=== PATIENT | male | born 1940 | race Caucasian/White ===

== ENCOUNTER 2017-08-24 13:18 | Inpatient (IN) | payer OTHER ==
[~2017-08-24] VITALS: Ht 175.3 cm; Wt 70.6 kg
[~2017-08-24 13:18] MED LIST: ATORVASTATIN CA40 MG PO; ATORVASTATIN CA80 MG PO; CO Q-1050 MG PO; COLACE100 MG PO; DUONEB 2.5-0.5 M3 ML IH; MULTIPLE VITAM1 EACH PO; NASACORT AQ16.5 GM BOTH NARES; OMEPRAZOLE20 MG PO; OMEPRAZOLE40 M1 PO; PULMICORT FLE180 MCG IH; ULTRAM50 MG PO; [UNRECOGNIZED DRUG - OTHER] PO
[2017-08-24 16:15] LABS: EOSINOPHIL (%) 0.7 % (0-5); EOSINOPHIL COUNT 0.1 K/uL (0-0.3); IMMATURE GRANULOCYTE (%) 0.7 % (0.0-0.7); IMMATURE GRANULOCYTE COUNT 0.1 K/uL; INSTRUMENT ABS NEUTROPHIL CT 10.5 K/uL; LYMPHOCYTE COUNT 1.4 K/uL (1.0-2.8); MCH 30.8 PG (29.0-34.0); MCHC 32.6 G/DL (30.0-36.0); MCV 94.3 FL (86-99); MEAN PLAT.VOLUME 10.8 uM^3 (9.0-12.4); MONOCYTE (%) 6.1 % (3-12); MONOCYTE COUNT 0.8 K/uL (0-0.8); NEUTROPHIL (%) 81.7 % (45-76); NEUTROPHIL COUNT 10.5 K/uL (1.8-6.4); PLATELET COUNT 105 K/uL (156-360); RBC DIS.WIDTH-CV 12.9 % (11.8-14.6); RBC DIS.WIDTH-SD 44.9 % (39-53); RED BLOOD COUNT 4.03 M/uL (4.00-5.50); WHITE BLOOD COUNT 12.8 K/uL (4.1-10.2)
[2017-08-24 16:29] LABS: CHLORIDE 105 mEq/L (99-109); POTASSIUM 3.9 mEq/L (3.7-5.4); SODIUM 139 mEq/L (136-147)
[2017-08-24 16:31] LABS: GLUCOSE 145 mg/dL (70-99)
[2017-08-24 16:32] LABS: ANION GAP 13 MEQ/L (2-14)
[2017-08-24 16:33] LABS: TOTAL BILIRUBIN 0.6 mg/dL (0.0-1.0)
[2017-08-24 16:34] LABS: ALKALINE PHOSPHATASE 78 IU/L (3-129)
[2017-08-24 16:35] LABS: GFR ESTIMATE (CALCULATED) > 59 mL/min/
[2017-08-24 16:36] LABS: UREA NITROGEN (BUN) 21 mg/dL (9-23)
[2017-08-24 16:43] LABS: ADD MIUA? YES; BILIRUBIN NEGATIVE; BLOOD MODERATE; COLOR YELLOW ((YELLOW)); GLUCOSE (STRIP) NEGATIVE; KETONES NEGATIVE; LEUKOCYTES MODERATE; NITRITE NEGATIVE; PROTEIN (STRIP) 30; SPECIFIC GRAVITY 1.014 (1.000-1.030); UROBILINOGEN 0.2 MG/DL (0.2-1.0)
[2017-08-24 17:05] LABS: BACTERIA 4+ /HPF; EPITHELIAL CELLS RARE /HPF; MUCUS NONE SEEN /LPF; UCUL ADDED? YES
[2017-08-24] MEDS ORDERED: OMEPRAZOLE20 MG PO (17:30)
[2017-08-24] MEDS ORDERED: TUMS500 MG PO (17:34)
[2017-08-24 22:05] VITALS: BP 137/66
[2017-08-24 23:19] VITALS: BP 106/59
[2017-08-25 00:57] LABS: HEMATOCRIT 30.4 % (38.0-50.0); MCH 31.1 PG (29.0-34.0); MCHC 33.6 G/DL (30.0-36.0); MCV 92.7 FL (86-99); MEAN PLAT.VOLUME 11.1 uM^3 (9.0-12.4); PLATELET COUNT 88 K/uL (156-360); RBC DIS.WIDTH-CV 13.2 % (11.8-14.6); RBC DIS.WIDTH-SD 44.7 % (39-53); RED BLOOD COUNT 3.28 M/uL (4.00-5.50); WHITE BLOOD COUNT 6.9 K/uL (4.1-10.2)
[2017-08-25 03:59] VITALS: BP 108/55
[2017-08-25 06:53] LABS: HEMATOCRIT 29.7 % (38.0-50.0); MCH 30.3 PG (29.0-34.0); MCHC 32.7 G/DL (30.0-36.0); MCV 92.8 FL (86-99); MEAN PLAT.VOLUME 11.3 uM^3 (9.0-12.4); PLATELET COUNT 77 K/uL (156-360); RBC DIS.WIDTH-CV 13.2 % (11.8-14.6); RBC DIS.WIDTH-SD 45.1 % (39-53); WHITE BLOOD COUNT 6.9 K/uL (4.1-10.2)
[2017-08-25 07:24] LABS: ALKALINE PHOSPHATASE 56 IU/L (3-129); ANION GAP 8 MEQ/L (2-14); CHLORIDE 103 MEQ/L (99-109); GFR ESTIMATE (CALCULATED) > 59 mL/min/; GLUCOSE 119 mg/dL (70-99); POTASSIUM 3.9 MEQ/L (3.7-5.4); SAMPLE HEMOLYSIS CHECK 0; SAMPLE ICTERIC CHECK 0; SAMPLE LIPEMIA CHECK 0; SODIUM 136 MEQ/L (136-147); TOTAL BILIRUBIN 0.8 MG/DL (0.0-1.0); UREA NITROGEN (BUN) 22 mg/dL (9-23)
[2017-08-25 09:56] VITALS: BP 114/62
[2017-08-25 11:16] VITALS: BP 116/66
[2017-08-25 16:40] VITALS: BP 123/59
[2017-08-25 19:26] VITALS: BP 135/64
[2017-08-26 00:46] VITALS: BP 135/64
[2017-08-26 04:27] VITALS: BP 134/71
[2017-08-26 08:24] VITALS: BP 117/57
[2017-08-26 11:16] VITALS: BP 119/60
[2017-08-26 12:02] LABS: HEMATOCRIT 30.6 % (38.0-50.0); MCH 31.6 PG (29.0-34.0); MCHC 33.3 G/DL (30.0-36.0); MCV 94.7 FL (86-99); MEAN PLAT.VOLUME 11.8 uM^3 (9.0-12.4); PLATELET COUNT 88 K/uL (156-360); RBC DIS.WIDTH-CV 13.3 % (11.8-14.6); RBC DIS.WIDTH-SD 45.9 % (39-53); RED BLOOD COUNT 3.23 M/uL (4.00-5.50); WHITE BLOOD COUNT 6.9 K/uL (4.1-10.2)
[2017-08-26] MEDS ORDERED: ENDOCET 5-3251 EACH PO (12:02)
[2017-08-26] MEDS ORDERED: KEFLEX500 MG PO (12:49)
[2017-08-26 15:27] VITALS: BP 132/60
== END 2017-08-26 18:15 | disposition home health service (06) | DRG 536 ==
LOC: EME 13:18 → EDOF 20:14 → 3EAST 20:14 → ENRESERV 20:20 → 3EAST 21:35
PROVIDERS: Emergency Medicine; Physician Assistant Surgical; Surgery
DX: S32.810A Multiple fractures of pelvis with stable disruption of pelvic ring, initial encounter for closed fracture (principal); S40.212A Abrasion of left shoulder, initial encounter; S40.811A Abrasion of right upper arm, initial encounter; V43.52XA Car driver injured in collision with other type car in traffic accident, initial encounter; Y92.410 Unspecified street and highway as the place of occurrence of the external cause; N39.0 Urinary tract infection, site not specified; B96.20 Unspecified Escherichia coli [E. coli] as the cause of diseases classified elsewhere; D69.6 Thrombocytopenia, unspecified; R55 Syncope and collapse; J44.9 Chronic obstructive pulmonary disease, unspecified; E78.5 Hyperlipidemia, unspecified; K21.9 Gastro-esophageal reflux disease without esophagitis; R91.8 Other nonspecific abnormal finding of lung field; Z87.891 Personal history of nicotine dependence; Z85.46 Personal history of malignant neoplasm of prostate
CPT/HCPCS: 71250; 73030; 74176; 74177; 80053; 81003; 85025; 85027; 86850; 86900; 86901; 87077; 87086; 87186; 94640; 94640 76; 99202; 99281; 99285; J3010; J7030; J7120

== ENCOUNTER → 2017-12-02 | Outpatient (CLI) | payer OTHER ==
[~2017-12-02] MED LIST changes: +BENADRYL25 MG PO; +ENDOCET 5-3251 EACH PO; +KEFLEX500 MG PO; +TUMS500 MG PO
[2017-12-02 08:02] LABS: HEMATOCRIT 41.4 % (38.0-50.0); HEMOGLOBIN 13.2 G/DL (12.5-16.6); MCH 29.1 PG (29.0-34.0); MCHC 31.9 G/DL (30.0-36.0); MCV 91.4 FL (86-99); PLATELET COUNT 134 K/uL (156-360); RBC DIS.WIDTH-SD 47.5 % (39-53); RED BLOOD COUNT 4.53 M/uL (4.00-5.50); WHITE BLOOD COUNT 5.3 K/uL (4.1-10.2)
[2017-12-02 08:09] LABS: INTER. NORMALIZED RATIO 0.9
[2017-12-02 08:12] LABS: PTT 27.2 SEC (25-37)
== END | disposition home or self-care (01) ==
LOC: OPR 07:21 → EDSTATUS 08:00 → OPR 08:00
PROVIDERS: Internal Medicine Pulmonary Disease
DX: C34.31 Malignant neoplasm of lower lobe, right bronchus or lung (principal); J44.9 Chronic obstructive pulmonary disease, unspecified; K21.9 Gastro-esophageal reflux disease without esophagitis; Z87.891 Personal history of nicotine dependence; Z85.46 Personal history of malignant neoplasm of prostate
CPT/HCPCS: 71045; 77012; 85027; 85610; 85730; 88305; 88341 TC; 88342 TC; J3010

== ENCOUNTER 2017-12-10 06:15 | Day surgery (SDC) | payer OTHER ==
[~2017-12-10] VITALS: Ht 170.2 cm; Wt 72.6 kg
[2017-12-10 07:05] VITALS: BP 151/71
[2017-12-10] MEDS ORDERED: HYDROCODON-ACE1 EAC7 PO (10:18)
[2017-12-10] MEDS ORDERED: COLACE100 MG PO (10:18)
[2017-12-10 10:40] VITALS: BP 145/67
[2017-12-10 11:50] VITALS: BP 126/59
[2017-12-14] MEDS ORDERED: SYMBICORT60 INHALA1 IH (10:01)
[2017-12-14] MEDS ORDERED: INCRUSE ELLI62.5 MCG IH (10:02)
== END 2017-12-10 11:50 | disposition home or self-care (01) ==
LOC: SDC 06:15 → 2SOUTH 16:04 → EDSTATUS 16:05 → SDC 16:05
PROC: 07B74ZX Excision of Thorax Lymphatic, Percutaneous Endoscopic Approach, Diagnostic (ICD-10-PCS; principal; 2017-12-10)
DX: C34.31 Malignant neoplasm of lower lobe, right bronchus or lung (principal); J43.9 Emphysema, unspecified; K44.9 Diaphragmatic hernia without obstruction or gangrene; Z85.46 Personal history of malignant neoplasm of prostate; Z87.891 Personal history of nicotine dependence
CPT/HCPCS: 80053; 86850; 86900; 86901; 88305; J0131; J0690; J1100; J2250; J2405; J2710; J3010

== ENCOUNTER 2017-12-16 22:33 | Inpatient (IN) | payer OTHER ==
[~2017-12-16] VITALS: Ht 170.2 cm
[~2017-12-16 22:33] MED LIST changes: +HYDROCODON-ACE1 EAC7 PO; +INCRUSE ELLI62.5 MCG IH; +SYMBICORT60 INHALA1 IH
[2017-12-17 07:04] VITALS: BP 138/72
[2017-12-17 07:30] LABS: PTT 26.4 SEC (25-37)
[2017-12-17 15:00] VITALS: BP 164/64
[2017-12-17 16:00] VITALS: BP 127/70
[2017-12-17 18:00] VITALS: BP 120/72
[2017-12-17 22:00] VITALS: BP 120/72
[2017-12-18] VITALS (9 sets, daily range): BP systolic 105–142; BP diastolic 52–75
[2017-12-18 07:30] LABS: HEMATOCRIT 32.7 % (38.0-50.0); HEMOGLOBIN 10.6 G/DL (12.5-16.6); MCHC 32.4 G/DL (30.0-36.0); MCV 92.6 FL (86-99); PLATELET COUNT 131 K/uL (156-360); RBC DIS.WIDTH-CV 14.6 % (11.8-14.6); RBC DIS.WIDTH-SD 49.3 % (39-53); RED BLOOD COUNT 3.53 M/uL (4.00-5.50)
[2017-12-18 07:56] LABS: CHLORIDE 100 MEQ/L (99-109); CREATININE 0.8 MG/DL (0.6-1.3); GFR ESTIMATE (CALCULATED) > 59 mL/min/ (58.99-99999); GLUCOSE 107 mg/dL (70-99); POTASSIUM 4.9 MEQ/L (3.7-5.4); SODIUM 134 MEQ/L (136-147); UREA NITROGEN (BUN) 19 mg/dL (9-23)
[2017-12-19] VITALS (20 sets, daily range): BP systolic 92–133; BP diastolic 50–78
[2017-12-19 05:35] LABS: HEMATOCRIT 31.1 % (38.0-50.0); HEMOGLOBIN 10.2 G/DL (12.5-16.6); MCH 30.2 PG (29.0-34.0); MCHC 32.8 G/DL (30.0-36.0); PLATELET COUNT 110 K/uL (156-360); RBC DIS.WIDTH-CV 14.4 % (11.8-14.6); RBC DIS.WIDTH-SD 49.1 % (39-53); RED BLOOD COUNT 3.38 M/uL (4.00-5.50); WHITE BLOOD COUNT 9.4 K/uL (4.1-10.2)
[2017-12-19 05:59] LABS: CHLORIDE 99 MEQ/L (99-109); CREATININE 0.8 MG/DL (0.6-1.3); GFR ESTIMATE (CALCULATED) > 59 mL/min/ (58.99-99999); GLUCOSE 117 mg/dL (70-99); POTASSIUM 4.7 MEQ/L (3.7-5.4); SODIUM 130 MEQ/L (136-147); UREA NITROGEN (BUN) 18 mg/dL (9-23)
[2017-12-20] VITALS (20 sets, daily range): BP systolic 90–130; BP diastolic 44–78
[2017-12-20 05:43] LABS: HEMATOCRIT 29.6 % (38.0-50.0); HEMOGLOBIN 9.8 G/DL (12.5-16.6); MCH 29.9 PG (29.0-34.0); MCHC 33.1 G/DL (30.0-36.0); MCV 90.2 FL (86-99); PLATELET COUNT 100 K/uL (156-360); RBC DIS.WIDTH-SD 46.4 % (39-53); RED BLOOD COUNT 3.28 M/uL (4.00-5.50); WHITE BLOOD COUNT 8.6 K/uL (4.1-10.2)
[2017-12-20 06:06] LABS: CHLORIDE 98 MEQ/L (99-109); CREATININE 0.8 MG/DL (0.6-1.3); GFR ESTIMATE (CALCULATED) > 59 mL/min/ (58.99-99999); GLUCOSE 119 mg/dL (70-99); POTASSIUM 4.5 MEQ/L (3.7-5.4); SODIUM 131 MEQ/L (136-147); UREA NITROGEN (BUN) 21 mg/dL (9-23)
[2017-12-21] VITALS (14 sets, daily range): BP systolic 112–154; BP diastolic 54–89
[2017-12-21 05:47] LABS: CHLORIDE 99 MEQ/L (99-109); CREATININE 0.8 MG/DL (0.6-1.3); GFR ESTIMATE (CALCULATED) > 59 mL/min/ (58.99-99999); GLUCOSE 135 mg/dL (70-99); POTASSIUM 4.5 MEQ/L (3.7-5.4); SODIUM 133 MEQ/L (136-147); UREA NITROGEN (BUN) 21 mg/dL (9-23)
[2017-12-22 00:20] VITALS: BP 145/88
[2017-12-22 07:00] VITALS: BP 141/67
[2017-12-22 11:24] VITALS: BP 125/60
[2017-12-22] MEDS ORDERED: HYDROCODON-ACE1 EAC7 PO (12:48)
[2017-12-22] MEDS ORDERED: DIGOXIN250 MCG PO (12:48)
[2017-12-22] MEDS ORDERED: DOCUSATE SODIU100 MG PO (12:48)
[2017-12-22] MEDS ORDERED: TAMSULOSIN HCL0.4 MG PO (12:48)
[2017-12-22] MEDS ORDERED: MUCINEX600 MG PO (12:48)
[2017-12-22] MEDS ORDERED: LOPRESSOR25 MG PO (12:48)
[2017-12-22 15:05] VITALS: BP 128/60
== END 2017-12-22 20:12 | disposition home health service (06) | DRG 182 ==
LOC: CANRESERV 22:33 → ENRESERV 22:33 → 2SOUTH 12-17 06:13 → 4WEST 12-17 06:13 → EDSTATUS 12-17 09:32 → 2SOUTH 12-17 09:33 → ENRESERV 12-17 12:47 → 2SOUTH 12-17 12:53 → SDC 12-17 14:26 → 4WEST 12-17 14:43 → ENRESERV 12-21 19:56 → 5EAST 12-21 22:40
PROVIDERS: Thoracic Surgery (Cardiothoracic Vascular Surgery)
DX: C34.31 Malignant neoplasm of lower lobe, right bronchus or lung (principal); J44.9 Chronic obstructive pulmonary disease, unspecified; K21.9 Gastro-esophageal reflux disease without esophagitis; Z87.891 Personal history of nicotine dependence; Z85.46 Personal history of malignant neoplasm of prostate; Z85.118 Personal history of other malignant neoplasm of bronchus and lung; Z80.0 Family history of malignant neoplasm of digestive organs; Z83.3 Family history of diabetes mellitus; Z82.3 Family history of stroke; Z87.440 Personal history of urinary (tract) infections
CPT/HCPCS: 71045; 71046; 80048; 82948; 85027; 85610; 85730; 86850; 86900; 86901; 86920; 87641; 88300; 88305; 88309; 88312; 94010; 94640; 94640 76; 94760; 94799; 97530 GO; 97530 GP; 99202; J0131; J0330; J0690; J1100; J1160; J1644; J2405; J2710; J3010; J7050; J7120; P9045; S0020